=== PATIENT | female | born 1955 | race Caucasian/White ===

== ENCOUNTER 2017-01-05 03:08 | Inpatient (IN) | payer BC ==
[~2017-01-05] VITALS: Ht 162.6 cm; Wt 124.9 kg
[~2017-01-05 03:08] MED LIST: ACIPHEX20 MG PO; ALPRAZOLAM0.25 M2 GT; BENICAR HCT 401 EACH PO; CELEBREX200 MG PO; FORTAMET500 M1 PO; LEXAPRO20 MG PO; OXYCONTIN10 MG PO; VICODIN,LORT1 TABLET PO; ZIAC 10/6.251 TABLET PO
[2017-01-05 04:00] LABS: EOSINOPHIL (%) 0 % (0-5); IMMATURE GRANULOCYTE (%) 0.3 % (0.0-0.7); INSTRUMENT ABS NEUTROPHIL CT 10.1 K/uL; LYMPHOCYTE COUNT 0.6 K/uL (1.0-2.8); MCH 28.8 PG (29.0-34.0); MCHC 33.7 G/DL (30.0-36.0); MCV 85.4 FL (83-99); MEAN PLAT.VOLUME 9.5 uM^3 (9.5-12.4); MONOCYTE (%) 7.3 % (3-12); MONOCYTE COUNT 0.9 K/uL (0-0.8); NEUTROPHIL (%) 86.8 % (45-76); NEUTROPHIL COUNT 10.1 K/uL (1.8-6.4); PLATELET COUNT 219 K/uL (156-360); RBC DIS.WIDTH-CV 13.1 % (11.8-14.6); RBC DIS.WIDTH-SD 40.9 % (39-53); WHITE BLOOD COUNT 11.6 K/uL (4.1-10.2)
[2017-01-05 04:15] LABS: CHLORIDE 97 mEq/L (99-109); POTASSIUM 2.5 mEq/L (3.7-5.4); SODIUM 132 mEq/L (136-147)
[2017-01-05 04:17] LABS: GLUCOSE 203 mg/dL (70-99)
[2017-01-05 04:18] LABS: ANION GAP 11 MEQ/L (2-14)
[2017-01-05 04:19] LABS: TOTAL BILIRUBIN 0.7 mg/dL (0.0-1.0)
[2017-01-05 04:20] LABS: ALKALINE PHOSPHATASE 85 IU/L (3-129)
[2017-01-05 04:21] LABS: GFR ESTIMATE (CALCULATED) 48 mL/min/
[2017-01-05 04:22] LABS: UREA NITROGEN (BUN) 15 mg/dL (9-23)
[2017-01-05 04:24] LABS: LIPASE 9 U/L (1.0-51.0)
[2017-01-05 05:13] LABS: COLOR YELLOW ((YELLOW)); GLUCOSE (STRIP) NEGATIVE; LEUKOCYTES MODERATE; NITRITE NEGATIVE; PH, URINE 6.5 (5-8); PROTEIN (STRIP) 100; SPECIFIC GRAVITY 1.009 (1.000-1.030)
[2017-01-05 05:14] LABS: ADD MIUA? YES; BILIRUBIN NEGATIVE; BLOOD LARGE; KETONES NEGATIVE; UROBILINOGEN 0.2 MG/DL (0.2-1.0)
[2017-01-05 05:15] LABS: EPITHELIAL CELLS 1+ /HPF
[2017-01-05 05:16] LABS: MUCUS 1+ /LPF
[2017-01-05 05:17] LABS: RED BLOOD CELLS 0-5 /HPF (0-5); UCUL ADDED? YES; WHITE BLOOD CELLS 40-50 /HPF (0-5)
[2017-01-05 05:18] LABS: BACTERIA 1+ /HPF
[2017-01-05 09:30] LABS: TROP-I INTERPRETATION NEGATIVE; TROPONIN-I < 0.01 ng/mL (0.0-0.30)
[2017-01-05 10:30] VITALS: BP 138/60
[2017-01-05 11:16] VITALS: BP 139/90
[2017-01-05 11:53] LABS: POINT-OF-CARE METER ID UU14162508
[2017-01-05 15:40] LABS: TROP-I INTERPRETATION NEGATIVE; TROPONIN-I 0.02 ng/mL (0.0-0.30)
[2017-01-05 15:44] VITALS: BP 118/59
[2017-01-05 16:04] LABS: POINT-OF-CARE METER ID UU14162508
[2017-01-05] MEDS ORDERED: FLEXERIL5 MG PO (18:03)
[2017-01-05] MEDS ORDERED: TRULICITY0.75 MG/0. SC (18:03)
[2017-01-05] MEDS ORDERED: NORVASC5 MG PO (18:04)
[2017-01-05] MEDS ORDERED: VENTOLIN HFA18 GM IH (18:04)
[2017-01-05] MEDS ORDERED: TOPROL XL50 MG PO (18:04)
[2017-01-05] MEDS ORDERED: SPIRIVA RESPIMAT4 G1 IH (18:05)
[2017-01-05] MEDS ORDERED: NORCO 5/3251 TABLET PO (18:05)
[2017-01-05] MEDS ORDERED: SYMBICORT60 INHALAT IH (18:05)
[2017-01-05] MEDS ORDERED: OMEPRAZOLE40 M1 PO (18:06)
[2017-01-05] MEDS ORDERED: CELEXA40 MG PO (18:06)
[2017-01-05] MEDS ORDERED: LIDODERM 5% P1 PATCH TD (18:07)
[2017-01-05] MEDS ORDERED: KLONOPIN0.5 M1 PO ×2 (18:07)
[2017-01-05] MEDS ORDERED: METFORMIN HCL1000 M3 PO (18:08)
[2017-01-05 19:44] VITALS: BP 106/65
[2017-01-05 21:39] LABS: TROP-I INTERPRETATION NEGATIVE; TROPONIN-I 0.01 ng/mL (0.0-0.30)
[2017-01-05 23:43] VITALS: BP 124/70
[2017-01-06 03:44] VITALS: BP 120/56
[2017-01-06 06:20] LABS: POINT-OF-CARE METER ID UU14162508
[2017-01-06 07:42] LABS: ANION GAP 11 MEQ/L (2-14); CHLORIDE 100 MEQ/L (99-109); GFR ESTIMATE (CALCULATED) 35 mL/min/; GLUCOSE 218 mg/dL (70-99); POTASSIUM 3.4 MEQ/L (3.7-5.4); SAMPLE HEMOLYSIS CHECK 0; SAMPLE ICTERIC CHECK 0; SAMPLE LIPEMIA CHECK 0; SODIUM 131 MEQ/L (136-147); UREA NITROGEN (BUN) 20 mg/dL (9-23)
[2017-01-06 07:45] VITALS: BP 127/71
[2017-01-06 11:36] VITALS: BP 139/64
[2017-01-06 12:13] LABS: POINT-OF-CARE METER ID UU14162508
[2017-01-06 13:15] VITALS: BP 128/69
[2017-01-06 16:53] LABS: POINT-OF-CARE METER ID UU14208750
[2017-01-06 19:55] VITALS: BP 120/60
[2017-01-06 22:55] LABS: C DIFF TOXIN NEGATIVE (NEGATIVE)
[2017-01-06 22:56] LABS: PROBE CHECK PASS; SPECIMEN PROCESSING CONTROL PASS
[2017-01-06 23:55] VITALS: BP 135/64
[2017-01-07 06:13] LABS: HEMATOCRIT 31.2 % (36.0-46.0); MCHC 33.3 G/DL (30.0-36.0); MCV 86.9 FL (83-99); RBC DIS.WIDTH-CV 13.6 % (11.8-14.6); RBC DIS.WIDTH-SD 43.9 % (39-53); RED BLOOD COUNT 3.59 M/uL (3.80-5.20); WHITE BLOOD COUNT 8.5 K/uL (4.1-10.2)
[2017-01-07 06:14] LABS: ANION GAP 9 MEQ/L (2-14); CHLORIDE 103 MEQ/L (99-109); GFR ESTIMATE (CALCULATED) 35 mL/min/; GLUCOSE 160 mg/dL (70-99); POTASSIUM 3.7 MEQ/L (3.7-5.4); SAMPLE HEMOLYSIS CHECK 1; SAMPLE ICTERIC CHECK 0; SAMPLE LIPEMIA CHECK 0; SODIUM 132 MEQ/L (136-147); UREA NITROGEN (BUN) 17 mg/dL (9-23)
[2017-01-07 06:43] LABS: POINT-OF-CARE METER ID UU14208750
[2017-01-07 06:53] LABS: MEAN PLAT.VOLUME 10.3 uM^3 (9.5-12.4); PLAT.SUFFICIENCY ADEQUATE
[2017-01-07 06:54] LABS: PLATELET COUNT 142 K/uL (156-360)
[2017-01-07 07:35] VITALS: BP 149/86
[2017-01-07 12:54] LABS: POINT-OF-CARE METER ID UU14162508
[2017-01-07 15:17] LABS: POINT-OF-CARE METER ID UU14162508
[2017-01-07 16:16] VITALS: BP 134/74
[2017-01-07 19:37] VITALS: BP 148/73
[2017-01-07 21:46] LABS: POINT-OF-CARE METER ID UU14162508
[2017-01-07 23:19] VITALS: BP 138/67
[2017-01-08 06:36] LABS: POINT-OF-CARE METER ID UU14162508
[2017-01-08 07:35] VITALS: BP 139/82
[2017-01-08 08:32] LABS: HEMATOCRIT 30.6 % (36.0-46.0); MCH 29.7 PG (29.0-34.0); MCV 87.4 FL (83-99); MEAN PLAT.VOLUME 10.7 uM^3 (9.5-12.4); PLATELET COUNT 179 K/uL (156-360); RBC DIS.WIDTH-CV 14.3 % (11.8-14.6); WHITE BLOOD COUNT 9.1 K/uL (4.1-10.2)
[2017-01-08 08:55] LABS: ALKALINE PHOSPHATASE 116 IU/L (3-129); ANION GAP 10 MEQ/L (2-14); CHLORIDE 104 MEQ/L (99-109); GFR ESTIMATE (CALCULATED) 40 mL/min/; GLUCOSE 168 mg/dL (70-99); POTASSIUM 3.4 MEQ/L (3.7-5.4); SAMPLE HEMOLYSIS CHECK 0; SAMPLE ICTERIC CHECK 0; SAMPLE LIPEMIA CHECK 0; SODIUM 135 MEQ/L (136-147); TOTAL BILIRUBIN 0.4 MG/DL (0.0-1.0); UREA NITROGEN (BUN) 15 mg/dL (9-23)
[2017-01-08 12:11] LABS: POINT-OF-CARE METER ID UU14162508
[2017-01-08 15:35] VITALS: BP 157/81
[2017-01-08 16:59] LABS: POINT-OF-CARE METER ID UU14162508
[2017-01-08 23:09] VITALS: BP 128/70
[2017-01-09 06:18] LABS: POINT-OF-CARE METER ID UU14208750
[2017-01-09 07:09] LABS: MCH 29.8 PG (29.0-34.0); MCHC 34.1 G/DL (30.0-36.0); MCV 87.3 FL (83-99); MEAN PLAT.VOLUME 10.6 uM^3 (9.5-12.4); PLATELET COUNT 204 K/uL (156-360); RBC DIS.WIDTH-CV 14.2 % (11.8-14.6); RBC DIS.WIDTH-SD 45.8 % (39-53); RED BLOOD COUNT 3.32 M/uL (3.80-5.20); WHITE BLOOD COUNT 9.3 K/uL (4.1-10.2)
[2017-01-09 07:42] LABS: ALKALINE PHOSPHATASE 111 IU/L (3-129); ANION GAP 12 MEQ/L (2-14); CHLORIDE 107 MEQ/L (99-109); DIRECT BILIRUBIN 0.1 mg/dL (0.0-0.3); GFR ESTIMATE (CALCULATED) 44 mL/min/; GLUCOSE 172 mg/dL (70-99); POTASSIUM 3.6 MEQ/L (3.7-5.4); SAMPLE HEMOLYSIS CHECK 0; SAMPLE ICTERIC CHECK 0; SAMPLE LIPEMIA CHECK 0; SODIUM 136 MEQ/L (136-147); UREA NITROGEN (BUN) 16 mg/dL (9-23)
[2017-01-09 07:43] LABS: TOTAL BILIRUBIN 0.5 MG/DL (0.0-1.0)
[2017-01-09 07:45] VITALS: BP 152/71
[2017-01-09 12:08] LABS: POINT-OF-CARE METER ID UU14208750
[2017-01-09 15:25] VITALS: BP 154/77
[2017-01-09 16:21] LABS: POINT-OF-CARE METER ID UU14208750
[2017-01-09 22:59] VITALS: BP 145/78
[2017-01-10 05:43] LABS: POINT-OF-CARE METER ID UU14208750
[2017-01-10 07:38] VITALS: BP 158/84
[2017-01-10 08:15] LABS: ANION GAP 10 MEQ/L (2-14); CHLORIDE 109 MEQ/L (99-109); GFR ESTIMATE (CALCULATED) 48 mL/min/; GLUCOSE 161 mg/dL (70-99); POTASSIUM 3.8 MEQ/L (3.7-5.4); SAMPLE HEMOLYSIS CHECK 0; SAMPLE ICTERIC CHECK 0; SAMPLE LIPEMIA CHECK 0; SODIUM 142 MEQ/L (136-147); UREA NITROGEN (BUN) 18 mg/dL (9-23)
[2017-01-10] MEDS ORDERED: CIPRO500 MG PO (10:04)
[2017-01-10 11:45] LABS: POINT-OF-CARE METER ID UU14162508
== END 2017-01-10 12:45 | disposition home or self-care (01) | DRG 690 ==
LOC: EME 03:08 → EDOF 08:36 → ENRESERV 08:45 → EDOF 08:56 → ENRESERV 09:19 → 2EAST 10:25
PROVIDERS: Emergency Medicine; Hospitalist; Internal Medicine; Physician Assistant
PROC: 5A09357 Assistance with Respiratory Ventilation, Less than 24 Consecutive Hours, Continuous Positive Airway Pressure (ICD-10-PCS; principal; 2017-01-05)
DX: N30.00 Acute cystitis without hematuria (principal); E87.6 Hypokalemia; I12.9 Hypertensive chronic kidney disease with stage 1 through stage 4 chronic kidney disease, or unspecified chronic kidney disease; E87.2 Acidosis; J45.909 Unspecified asthma, uncomplicated; N18.3 Chronic kidney disease, stage 3 (moderate); G47.33 Obstructive sleep apnea (adult) (pediatric); E11.22 Type 2 diabetes mellitus with diabetic chronic kidney disease; R78.81 Bacteremia; N17.9 Acute kidney failure, unspecified; G43.A0 Cyclical vomiting, in migraine, not intractable; E87.1 Hypo-osmolality and hyponatremia; E86.0 Dehydration; G47.00 Insomnia, unspecified; K21.9 Gastro-esophageal reflux disease without esophagitis; E86.1 Hypovolemia; B96.20 Unspecified Escherichia coli [E. coli] as the cause of diseases classified elsewhere; E66.01 Morbid (severe) obesity due to excess calories; Z87.891 Personal history of nicotine dependence; Z68.42 Body mass index [BMI] 45.0-49.9, adult; Z79.899 Other long term (current) drug therapy; Z87.440 Personal history of urinary (tract) infections
CPT/HCPCS: 71020; 80048; 80053; 80076; 81003; 82948; 83605; 83690; 83735; 84132 91; 84484; 85025; 85027; 87040; 87077; 87086; 87186; 87493; 87801; 93005; 94010; 94640; 94640 76; 94660; 99202; 99281; 99285; J0696; J1650; J1815; J2270; J2405; J2543; J3480; J7030; J7050; S0028

== ENCOUNTER 2017-08-29 10:44 | Emergency (ER) | payer BC ==
[~2017-08-29] VITALS: Ht 162.6 cm; Wt 112.2 kg
[~2017-08-29 10:44] MED LIST changes: +CELEXA40 MG PO; +CIPRO500 MG PO; +FLEXERIL5 MG PO; +KLONOPIN0.5 M1 PO; +LIDODERM 5% P1 PATCH TD; +METFORMIN HCL1000 M3 PO; +NORCO 5/3251 TABLET PO; +NORVASC5 MG PO; +OMEPRAZOLE40 M1 PO; +SPIRIVA RESPIMAT4 G1 IH; +SYMBICORT60 INHALAT IH; +TOPROL XL50 MG PO; +TRULICITY0.75 MG/0. SC; +VENTOLIN HFA18 GM IH
[2017-08-29 12:01] LABS: HEMATOCRIT 39.4 % (36.0-46.0); HEMOGLOBIN 13.5 G/DL (11.9-15.5); MCHC 34.3 G/DL (30.0-36.0); MCV 90.4 FL (83-99); PLATELET COUNT 282 K/uL (156-360); RBC DIS.WIDTH-CV 12.8 % (11.8-14.6); RBC DIS.WIDTH-SD 42.3 % (39-53); RED BLOOD COUNT 4.36 M/uL (3.80-5.20); WHITE BLOOD COUNT 5.5 K/uL (4.1-10.2)
[2017-08-29 12:34] LABS: TROP-I INTERPRETATION NEGATIVE; TROPONIN-I < 0.01 ng/mL (0.0-0.30)
[2017-08-29 12:40] LABS: CHLORIDE 103 mEq/L (99-109); POTASSIUM 3.5 mEq/L (3.7-5.4); SODIUM 140 mEq/L (136-147)
[2017-08-29 12:42] LABS: GLUCOSE 194 mg/dL (70-99)
[2017-08-29 12:46] LABS: CREATININE 0.9 mg/dL (0.6-1.3); GFR ESTIMATE (CALCULATED) > 59 mL/min/
[2017-08-29 12:47] LABS: UREA NITROGEN (BUN) 15 mg/dL (9-23)
[2017-08-29 15:01] VITALS: BP 104/67
== END 2017-08-29 15:01 | disposition home or self-care (01) ==
LOC: EME 10:44
DX: K21.9 Gastro-esophageal reflux disease without esophagitis (principal); R11.0 Nausea; I10 Essential (primary) hypertension; F32.9 Major depressive disorder, single episode, unspecified; E11.9 Type 2 diabetes mellitus without complications; J45.909 Unspecified asthma, uncomplicated; Z79.84 Long term (current) use of oral hypoglycemic drugs; Z79.891 Long term (current) use of opiate analgesic; Z87.891 Personal history of nicotine dependence; Z88.8 Allergy status to other drugs, medicaments and biological substances
CPT/HCPCS: 71046; 80048; 84484; 85027; 93005; 99281; 99284